=== PATIENT | female | born 1965 | race Caucasian/White ===

== ENCOUNTER 2024-10-09 13:36 | Emergency (ER) | payer MEDICAID ==
[~2024-10-09] VITALS: Ht 157.5 cm; Wt 55.0 kg
[2024-10-09 13:41] VITALS: O2SAT 98
[2024-10-09] MEDS: ACETAMINOPHEN 325MG TABLET PO ONE (14:06)
[2024-10-09 14:49] LABS: BASOPHILS % 0.8 % (0.0-2.0); EOSINOPHILS % 0.9 % (0.0-5.0); HEMATOCRIT. 32.8 % (36.0-48.0); HEMOGLOBIN. 10.7 g/dL (12.0-16.0); LYMPHOCYTES % 26.3 % (20.0-50.0); MEAN PLATELET VOLUME 8.9 fl (7.4-10.4); MONOCYTES % 4.9 % (2.0-8.0); NEUTROPHILS % 67.1 % (40.0-76.0); PLATELET 224 x1000/uL (130-400); RED BLOOD CELL COUNT 3.87 mill/uL (4.2-5.4); RED CELL DISTRIBUTION WIDTH 14.9 % (11.6-14.6)
[2024-10-09 15:05] LABS: CREATININE 0.7 mg/dL (0.6-1.0)
[2024-10-09 15:06] LABS: TROPONIN I HIGH SENSITIVITY 13 ng/L (3.0-34); UREA NITROGEN BLOOD 8 mg/dL (9-23)
[2024-10-09 15:07] LABS: ASPARTATE AMINOTRANSFERASE 19 IU/L (<34); BILIRUBIN DIRECT 0.2 mg/dL (<=3.0)
[2024-10-09 15:08] LABS: BILIRUBIN TOTAL 0.9 mg/dL (0.1-1.0); PROTEIN TOTAL 6.8 g/dL (6.0-8.3)
[2024-10-09 17:21] LABS: TROPONIN I HIGH SENSITIVITY 14 ng/L (3.0-34)
[2024-10-09] MEDS ORDERED: LOSA50TA41 MT (19:42)
[2024-10-09] MEDS ORDERED: ASPI-1497 MT (19:42)
[2024-10-09] MEDS ORDERED: ATOR-2 MT (19:42)
[2024-10-09] MEDS ORDERED: AMLO10TA80 MT (19:42)
[2024-10-09] MEDS ORDERED: CLOP-31 MT (19:42)
[2024-10-09 19:56] VITALS: BP 157/86; PULSE 52; RESP 14; TEMP 36.9; O2SAT 99
== END 2024-10-09 20:02 | disposition home or self-care (01) ==
LOC: ER 13:36
DX: R53.1 Weakness (principal); R51.9 Headache, unspecified; E78.00 Pure hypercholesterolemia, unspecified; I10 Essential (primary) hypertension; I69.351 Hemiplegia and hemiparesis following cerebral infarction affecting right dominant side; Z79.02 Long term (current) use of antithrombotics/antiplatelets; Z79.82 Long term (current) use of aspirin
CPT/HCPCS: 36415; 71045; 80048; 80076; 84484; 85025; 93005; 99285